=== PATIENT | female | born 1975 | race African-American/Black ===

== ENCOUNTER 2017-01-18 19:56 | Emergency (ER) ==
[2017-01-18] MEDS ORDERED: ASPIRIN PO STA (20:05)
--- NOTE | 2017-01-18 20:08 | PROVIDER DOCUMENTATION ---
HPI-Chest Pain <Ne Dhillon - Last Filed: 01/18/17 23:12> - History of Present Illness-CP Location: reports: substernal Chest Pain Radiation: reports: no radiation Quality of Pain: reports: aching Severity in ED: mild Onset/Duration: abrupt, last week Timing: intermittent Context/Activities at Onset: reports: none Modifying Factors: improves with: rest Associated Symptoms: denies: abdominal pain, back pain, diaphoresis, dizziness, heartburn, nausea, shortness of breath, syncope, vomiting, weakness Nitro Today/Relief: no nitro taken today Aspirin Treatment Today: no aspirin today Prior Chest Pain/Cardiac Workup: reports: no prior chest pain Similar Symptoms Previously?: No Recently Seen Here or By Another Healthcare Provider: No <Cecilia Patterson - Last Filed: 01/18/17 23:28> - General Chief Complaint: Chest Pain Stated Complaint: CHEST PAIN Time Seen by Provider: 01/18/17 20:08 Allergies/Adverse Reactions: Patient Allergies Allergy/AdvReac Type Severity Reaction Status Date / Time No Known Allergies Allergy Verified 01/18/17 20:05 Home Medications: Home Medication List Medication Instructions Recorded Confirmed Last Taken Type Albuterol [Albuterol Neb] 2.5 mg INH Q4H PRN PRN 05/14/15 01/18/17 01/18/17 History Albuterol Sulfate Inhaler 4 - 5 puff INH DAILY 09/18/15 01/18/17 01/18/17 History [Ventolin Hfa] - History of Present Illness-CP Nature of Presenting Problem: Pt presents with one wk h/o intermittent substernal chest pain. Pain occurs spontaneously and lasts for about 5 minutes. Pain does not cause blurred vision , diaphoresis, or SOB. (Cecilia Patterson) Review of Systems - Adult - REVIEW OF SYSTEMS - ADULT Constitutional: denies: chills, fever Eyes: denies: blurred vision, double vision Cardiovascular: reports: see HPI Respiratory: reports: see HPI Gastrointestinal: reports: see HPI Neurological: denies: dizziness/vertigo, headache/migraines, numbness, paresthesia All Other Systems: Reviewed and Negative <Cecilia Patterson - Last Filed: 01/18/17 23:28> Past History - Adult - PAST MEDICAL HISTORY-ADULT Review of Records: reports: Old Records Reviewed, Nursing Assessment Review, Medications Reviewed, Social history reviewed & non-contributory. Respiratory: reports: asthma - PRIOR SURGERIES/PROCEDURES Surgical/Procedure History: reports: - IMMUNIZATION STATUS Childhood Immunizations: See Nurse Assessment Flu Vaccine: See Nurse Assessment - SOCIAL HISTORY Smoking: non-smoker <Cecilia Patterson - Last Filed: 01/18/17 23:28> Physical Exam-General - PHYSICAL EXAM-ADULT Initial Vital Signs Reviewed: Yes - CONSTITUTIONAL General Appearance: appears well, alert, no apparent distress - EYES Eyes: PERRL/EOMI, pink conjunctivae - HEAD, EARS, NOSE, MOUTH & THROAT HENMT: normocephalic/atraumatic, moist mucous membranes - NECK Neck: non-tender, full range of motion, supple. negative: lymphadenopathy - RESPIRATORY Respiratory: chest non-tender, lungs clear, normal breath sounds - CARDIOVASCULAR Cardiovascular: regular rate, rhythm, no edema - GASTROINTESTINAL (ABDOMEN) Abdominal Exam: normal bowel sounds, non tender, soft. negative: distended, guarding, rigid, rebound, tenderness, mass, hepatomegaly - MUSCULOSKELETAL Back Exam: normal inspection, no CVA tenderness, no vertebral tenderness Extremity: normal gait, normal inspection - SKIN Integumentary: normal color, normal turgor, warm/dry - NEUROLOGIC Neurologic: grossly normal, no motor/sensory deficits - PSYCHIATRIC Psych/Mental Status: normal thought content, normal thought process <Cecilia Patterson - Last Filed: 01/18/17 23:28> Progress - EKG 1 Time of EKG reading by physician:: 19:58 EKG Read and Signed by:: Cecilia Patterson EKG Interpretation (*Must complete 3 of following elements*): Normal Rate: 79 Rhythm: NSR Comments: Normal ECG <Ne Dhillon - Last Filed: 01/18/17 23:12> <Cecilia Patterson - Last Filed: 01/18/17 23:28> - PLAN OF CARE/RESULTS Progress/Plan/Lab Results: Vital Signs Temp Pulse Resp BP Pulse Ox 01/18/17 20:00 98 F 86 13 141/79 97 No Known Allergies Allergy (Verified 01/18/17 20:05) Albuterol [Albuterol Neb] 2.5 mg INH Q4H PRN PRN 05/14/15 Albuterol Sulfate Inhaler [Ventolin Hfa] 4 - 5 puff INH DAILY 09/18/15 Laboratory 01/18/17 01/18/17 01/18/17 20:05 20:05 20:05 WBC 5.98 RBC 4.59 Hgb 13.9 Hct 41.5 MCV 90.4 MCH 30.3 MCHC 33.5 RDW Std Deviation 13.7 Plt Count 176 MPV 12.0 H Immature Gran % (Auto) 0.0 Neut % (Auto) 37.6 L Lymph % (Auto) 43.6 Crawford % (Auto) 7.2 Eos % (Auto) 10.9 H Baso % (Auto) 0.7 Immature Gran # (Auto) 0.00 Neut # (Auto) 2.25 Lymph # (Auto) 2.61 Crawford # (Auto) 0.43 Eos # (Auto) 0.65 Baso # (Auto) 0.04 PT 15.3 INR 1.18 H APTT (Factor Assay) 27.3 D-Dimer 0.45 Sodium Potassium Chloride Carbon Dioxide Anion Gap BUN Creatinine Estimated GFR/1.73 m2 BUN/Creatinine Ratio Glucose Calculated Osmolality Calcium Magnesium Total Bilirubin AST ALT Alkaline Phosphatase Creatine Kinase Creatine Kinase Index CK-MB (CK-2) Troponin T Hub-V-Zmvvttjrqnn Pept < 5 L Total Protein Albumin Globulin Albumin/Globulin Ratio 01/18/17 01/18/17 20:05 20:05 WBC RBC Hgb Hct MCV MCH MCHC RDW Std Deviation Plt Count MPV Immature Gran % (Auto) Neut % (Auto) Lymph % (Auto) Crawford % (Auto) Eos % (Auto) Baso % (Auto) Immature Gran # (Auto) Neut # (Auto) Lymph # (Auto) Crawford # (Auto) Eos # (Auto) Baso # (Auto) PT INR APTT (Factor Assay) D-Dimer Sodium 135 L Potassium 3.5 Chloride 100 Carbon Dioxide 25 Anion Gap 10 BUN 11 Creatinine 1.1 H Estimated GFR/1.73 m2 54 BUN/Creatinine Ratio 10 Glucose 100 Calculated Osmolality 270 Calcium 8.9 Magnesium 2.1 Total Bilirubin < 0.15 L AST 25 ALT 17 Alkaline Phosphatase 51 Creatine Kinase 399 H Creatine Kinase Index 0.7 CK-MB (CK-2) 2.81 Troponin T < 0.010 Ilg-A-Fvomvxkpczk Pept Total Protein 7.5 Albumin 3.9 Globulin 4.0 Albumin/Globulin Ratio 1.0 Orders Category Date Time Status Cardiac Monitoring DIRECTED Care 01/18/17 20:05 Active Oxygen Therapy- ED Nursing DIRECTED Care 01/18/17 20:05 Active Saline Loc NOW Care 01/18/17 20:05 Active CHEST-2 VIEWS [RAD] Stat Exams 01/18/17 20:05 Taken CBC WITH ELECTRONIC DIFF [HEME] Stat Lab 01/18/17 20:05 Completed CK PROFILE [SP CHEM] Stat Lab 01/18/17 20:05 Completed COMPREHENSIVE METABOLIC PANEL [CHEM] Stat Lab 01/18/17 20:[address] D-D[address] [COAG] Stat Lab 01/18/17 20:05 Completed MAGNESIUM [CHEM] Stat Lab 01/18/17 20:05 Completed PRO B-NATRIURETIC PEPTIDE Stat Lab 01/18/17 20:05 Com[address]IME WITH INR PL [COAG] Stat Lab 01/18/17 20:[address] [COAG] Stat Lab 01/18/17 20:05 Completed TROPONIN T Stat Lab 01/18/17 20:05 Completed Aspirin Med 01/18/17 20:05 Discontinued 325 mg PO STAT STA EKG [EKG] Stat Ther 01/18/17 20:05 Ordered Laboratory Tests 01/18/17 01/18/17 01/18/17 20:05 20:05 20:05 WBC RBC Hgb Hct MCV MCH MCHC RDW Std Deviation Plt Count MPV Immature Gran % (Auto) Neut % (Auto) Lymph % (Auto) Crawford % (Auto) Eos % (Auto) Baso % (Auto) Immature Gran # (Auto) Neut # (Auto) Lymph # (Auto) Crawford # (Auto) Eos # (Auto) Baso # (Auto) PT INR APTT (Factor Assay) D-Dimer Sodium 135 L Potassium 3.5 Chloride 100 Carbon Dioxide 25 Anion Gap 10 BUN 11 Creatinine 1.1 H Estimated GFR/1.73 m2 54 BUN/Creatinine Ratio 10 Glucose 100 Calculated Osmolality 270 Calcium 8.9 Magnesium 2.1 Total Bilirubin < 0.15 L AST 25 ALT 17 Alkaline Phosphatase 51 Creatine Kinase 399 H Creatine Kinase Index 0.7 CK-MB (CK-2) 2.81 Troponin T < 0.010 Rlp-X-Xuwfmpatjlo Pept < 5 L Total Protein 7.5 Albumin 3.9 Globulin 4.0 Albumin/Globulin Ratio 1.0 01/18/17 01/18/17 01/18/17 20:05 20:05 22:30 WBC 5.98 RBC 4.59 Hgb 13.9 Hct 41.5 MCV 90.4 MCH 30.3 MCHC 33.5 RDW Std Deviation 13.7 Plt Count 176 MPV 12.0 H Immature Gran % (Auto) 0.0 Neut % (Auto) 37.6 L Lymph % (Auto) 43.6 Crawford % (Auto) 7.2 Eos % (Auto) 10.9 H Baso % (Auto) 0.7 Immature Gran # (Auto) 0.00 Neut # (Auto) 2.25 Lymph # (Auto) 2.61 Crawford # (Auto) 0.43 Eos # (Auto) 0.65 Baso # (Auto) 0.04 PT 15.3 INR 1.18 H APTT (Factor Assay) 27.3 D-Dimer 0.45 Sodium Potassium Chloride Carbon Dioxide Anion Gap BUN Creatinine Estimated GFR/1.73 m2 BUN/Creatinine Ratio Glucose Calculated Osmolality Calcium Magnesium Total Bilirubin AST ALT Alkaline Phosphatase Creatine Kinase 367 H Creatine Kinase Index 0.7 CK-MB (CK-2) 2.45 Troponin T Nyi-W-Csxbvvfvhwo Pept Total Protein Albumin Globulin Albumin/Globulin Ratio 01/18/17 22:30 WBC RBC Hgb Hct MCV MCH MCHC RDW Std Deviation Plt Count MPV Immature Gran % (Auto) Neut % (Auto) Lymph % (Auto) Crawford % (Auto) Eos % (Auto) Baso % (Auto) Immature Gran # (Auto) Neut # (Auto) Lymph # (Auto) Crawford # (Auto) Eos # (Auto) Baso # (Auto) PT INR APTT (Factor Assay) D-Dimer Sodium Potassium Chloride Carbon Dioxide Anion Gap BUN Creatinine Estimated GFR/1.73 m2 BUN/Creatinine Ratio Glucose Calculated Osmolality Calcium Magnesium Total Bilirubin AST ALT Alkaline Phosphatase Creatine Kinase Creatine Kinase Index CK-MB (CK-2) Troponin T < 0.010 Mcs-C-Dqiuzaufjop Pept Total Protein Albumin Globulin Albumin/Globulin Ratio second set of cardiac enzymes were normal. Educated pt to follow up with cardiology for further evaluation. Pt voiced understanding and willingness for compliance. (Cecilia Patterson) Departure <Ne Dhillon - Last Filed: 01/18/17 23:12> - Departure Time of Disposition Order: 23:27 Certified Medical Emergency: Emergent <Cecilia Patterson - Last Filed: 01/18/17 23:28> - Departure DIAGNOSIS: Chest pain Qualifiers: Chest pain type: unspecified Qualified Code(s): R07.9 - Chest pain, unspecified Disposition: HOME 01 Condition: Good Additional Instructions: ED Follow Up Instructions: You have been treated by a care provider in the Emergency Department. These instructions are being provided to you so you can have an understanding of how to care for yourself upon discharge. Upon discharge from the Emergency Department, you are responsible for making arrangements for follow-up care by a physician of your choice. Take all prescribed medications as directed. Return to the Emergency Department immediately for any new or worsening symptoms. You may call the Physician Referral phone number at [phone] to obtain a list of Physicians who are taking new patients. Referrals: Nikki Kenny [Primary Care Provider] - Keny Catherine MD [STAFF PHYSICIAN] - Attestation - Physician/ KRISTIN Attestation Patient care was provided by Advanced Practice Provider:: Yes Advanced Practice Provider:: Cecilia Patterson Advanced Practice Provider documentation review:: The Mid-level provider documentation, treatment plan and medical decision making was reviewed by the physician who agrees with all treatment and medical decision making by the MLP. <Cecilia Patterson - Last Filed: 01/18/17 23:28> Physician Attestation
[2017-01-18 20:13] LABS: MANUAL DIFF NEEDED? NO
[2017-01-18 20:16] LABS: BASO% 0.7 % (0.0-0.8); EOS# 0.65 X1000 (0.0-0.7); EOS% 10.9 % (0.0-10.0); HEMATOCRIT 41.5 % (37.0-47.0); HEMOGLOBIN 13.9 g/dL (12.0-16.0); LYMPH# 2.61 X1000 (1.2-3.4); LYMPH% 43.6 % (20.5-51.1); MCH 30.3 PG (27-31); MCHC 33.5 g/dL (33-37); MCV 90.4 FL (81-99); MONO# 0.43 X1000 (0.11-0.59); MONO% 7.2 % (1.7-9.3); NEUT% 37.6 % (42.2-75.2); PLT 176 X1000 (130-400); RBC 4.59 XMIL (4.2-5.4)
[2017-01-18 20:31] LABS: INR 1.18 (0.86-1.15); PROTIME 15.3 Seconds (12.1-15.5); PTT PL 27.3 Seconds (22.6-43.9)
[2017-01-18 20:49] LABS: AGAP 10; ALBUMIN 3.9 g/dL (3.5-5.0); ALKALINE PHOSPHATASE 51 U/L (32-104); BUN 11 mg/dL (8-22); CALCIUM 8.9 mg/dL (8.8-10.2); CHLORIDE 100 mmol/L (98-107); CK PROFILE 399 U/L (24-173); COSMO 270; GOT 25 U/L (10-30); GPT 17 U/L (10-36); MAGNESIUM 2.1 mg/dL (1.5-2.7); POTASSIUM 3.5 mmol/L (3.5-5.1); SODIUM 135 mmol/L (136-145); TCO2 25 mmol/L (25-35); TOTAL BILIRUBIN < 0.15 mg/dL (0.20-1.00); TOTAL PROTEIN 7.5 g/dL (6.3-8.3)
[2017-01-18 21:09] LABS: CK INDEX 0.7 (0.0-2.5); CK-MB 2.81 ng/mL (0.0-5.0)
[2017-01-18 23:14] LABS: CK INDEX 0.7 (0.0-2.5); CK-MB 2.45 ng/mL (0.0-5.0)
[2017-01-18 23:38] VITALS: BP 124/71
--- NOTE | 2017-01-19 01:05 | EKG Report ---
Test Performed on : 01/18/2017 10:34:41 PM Test Reason : chest pain Blood Pressure : / mmHG Vent. Rate : 074 BPM Atrial Rate : 074 BPM P-R Int : 156 ms QRS Dur : 098 ms QT Int : 390 ms P-R-T Axes : 071 062 034 degrees QTc Int : 432 ms Normal sinus rhythm. Normal ECG When compared with ECG of 18-JAN-2017 19:58, (Unconfirmed) No significant change was found Unconfirmed Result
--- NOTE | 2017-01-19 01:06 | EKG Report ---
Test Performed on : 01/18/2017 7:58:01 PM Test Reason : CHEST PAIN Blood Pressure : / mmHG Vent. Rate : 079 BPM Atrial Rate : 079 BPM P-R Int : 152 ms QRS Dur : 088 ms QT Int : 368 ms P-R-T Axes : 063 049 016 degrees QTc Int : 421 ms Normal sinus rhythm. Normal ECG No previous ECGs available Unconfirmed Result
--- NOTE | 2017-01-19 06:29 | Diag Imaging Result Document ---
PROCEDURE NAME: CHEST-2 VIEWS - 01/18/2017 FRONTAL AND LATERAL CHEST, TWO VIEWS: FINDINGS: The lungs are well expanded. The heart is not enlarged. The vessels are not distended. No pneumonia. No pleural effusions. No free air beneath the diaphragm. IMPRESSION: No acute abnormality.
== END 2017-01-18 23:49 | disposition home or self-care (01) ==
LOC: P.ED 19:56
DX: R07.9 Chest pain, unspecified (principal); J45.909 Unspecified asthma, uncomplicated; Z79.51 Long term (current) use of inhaled steroids
CPT/HCPCS: 71020; 80053; 82550; 82553; 83735; 83880; 84484; 85025; 85379; 85610; 85730; 93005